=== PATIENT | male | born 1950 | race Caucasian/White ===

== ENCOUNTER 2018-06-13 09:21 | Inpatient (IN) ==
[2018-06-15 07:55] VITALS: BP 134/70
== END 2018-06-15 09:15 | disposition home or self-care (01) | DRG 864 ==
LOC: N.2W 10:03 → N.TELES 15:16
PROVIDERS: ADMIT Family Medicine; ATTEND Family Medicine

== ENCOUNTER 2022-06-26 05:28 | Inpatient (IN) ==
[2022-06-26 05:55] LABS: Basophils # 0.1 10*3/uL (0.0-0.2); Basophils % 0.6 % (0.0-0.8); Eosinophils # 0.3 10*3/uL (0.0-0.87); Eosinophils % 2.6 % (0.00-10.9); Hematocrit 31.8 VOL% (42.0-52.0); Hemoglobin 10.6 GM/DL (14.0-18.0); Immature Granulocytes % 0.8 %; Immature Granulocytes Absolute 0.09 #; Lymphocytes # 1.9 10*3/uL (1.4-4.0); Lymphocytes % 18.1 % (21.2-54.2); Mean Corpuscular HGB Conc 33.3 GM/DL (32-36); Mean Corpuscular Volume 85.7 FL (87-102); Monocytes # 1.1 10*3/uL (0.11-0.8); Monocytes % 10.1 % (1.7-12.7); Neutrophils % 67.8 % (38.7-73.9); Platelet Count 404 T/CUMM (130-400); Red Blood Count 3.71 MC/CUMM (3.8-5.5); Red Cell Distribution Width 13.7 % (9.3-17.3); White Blood Count 10.7 T/CUMM (4-12)
[2022-06-26 06:12] LABS: INR 1.3; PT Patient Result 14.2 SECS (10.1-12.1)
[2022-06-26] MEDS ORDERED: SODIUM CHLORIDE 0.9% 2,000 ML IV STA (06:12)
[2022-06-26 06:15] LABS: Mucus,Urine Occasional /LPF (Occasional); RBC,Urine 1 /HPF (0-4)
[2022-06-26] MEDS ORDERED: cefTRIAXone 1,000 MG in SODIUM CHLORIDE 0.9% 100 ML IV STA (06:15)
[2022-06-26 06:18] LABS: Bilirubin,Urine Negative (Negative); Blood, Urine Negative (Negative); Glucose,Urine (UA) Negative (Negative); Ketones,Urine 40 mg/dL (Negative); Nitrite,Urine Negative (Negative); Protein,Urine Negative (Negative); Urine Appearance Clear (Clear); Urine Color Yellow (Yellow); Urine Specific Gravity 1.025 (1.001-1.035); Urine Urobilinogen 0.2 eU/dL (<2.0); Urine pH 5.5 (4.5-8.0)
[2022-06-26 06:22] LABS: Albumin 2.4 G/DL (3.4-5.0); Bilirubin,Total 0.6 MG/DL (0.20-1.00); Calcium 9.5 MG/DL (8.5-10.1); Osmolality,Calculated 265.2 MOS/KG (273-304); Potassium 2.8 MMOL/L (3.5-5.1); Total Protein 6.1 G/DL (6.4-8.2)
[2022-06-26] MEDS ORDERED: SODIUM CHLORIDE 0.9% 1,000 ML IV STA (07:46)
[2022-06-26] MEDS ORDERED: VANCOMYCIN INJ 1,250 MG in SODIUM CHLORIDE 0.9% 250 ML IV STA (07:53)
[2022-06-26] MEDS ORDERED: HYDROmorphone 1 MG/1 ML SYRINGE IV STA (08:00)
[2022-06-26] MEDS ORDERED: ONDANSETRON 4 MG/2 ML VIAL IV STA (08:00)
[2022-06-26] MEDS ORDERED: KETOROLAC 30 MG/1 ML VIAL IV STA (08:00)
[2022-06-26] MEDS ORDERED: GLUCAGON 1 MG VIAL IM PRN ×2 (08:34→16:07)
[2022-06-26] MEDS ORDERED: ONDANSETRON 4 MG/2 ML VIAL IV PRN (08:34)
[2022-06-26] MEDS ORDERED: ACETAMINOPHEN 325 MG TABLET PO PRN (08:34)
[2022-06-26] MEDS ORDERED: HYDROmorphone 1 MG/1 ML SYRINGE IV PRN (08:34)
[2022-06-26] MEDS ORDERED: DEXTROSE 10% 250 ML BAG IV PRN (08:41)
[2022-06-26] MEDS ORDERED: MAGNESIUM SULF RIDER 2 GM/50 ML PREMIX IV PRN (08:51)
[2022-06-26] MEDS ORDERED: MAGNESIUM SULF RIDER 4 GM/100 ML PREMIX IV PRN (08:51)
[2022-06-26] MEDS ORDERED: VANCOMYCIN INJ 1,250 MG in SODIUM CHLORIDE 0.9% 250 ML IV SCH (09:00)
[2022-06-26 09:36] LABS: Cholesterol Crystals None Seen /LPF; Glucose,Synovial Fluid 3 MG/DL
[2022-06-26 09:55] LABS: Lymphocytes,Synovial Fluid 6 %; Neutrophils,Synovial Fluid 92 %
[2022-06-26] MEDS ORDERED: POTASSIUM CHLORIDE RIDER 10 MEQ/100 ML PREMIX IV PRN (10:41)
[2022-06-26] MEDS: ENOXAPARIN 40 MG/0.4 ML SYRINGE SUBCUT SCH (10:56)
[2022-06-26] MEDS: MULTIVITAMIN (CENTRUM) TABLET PO SCH (10:56)
[2022-06-26] MEDS: POTASSIUM CHLORIDE 10 MEQ TABLET PO SCH (10:56)
[2022-06-26] MEDS: DOCUSATE SODIUM 100 MG CAPSULE PO SCH ×2 (10:57→21:32)
[2022-06-26] MEDS: PANTOPRAZOLE 40 MG TABLET PO SCH (10:57)
[2022-06-26] MEDS: LOSARTAN 50 MG TABLET PO SCH (10:57)
[2022-06-26] MEDS: metOLazone 5 MG TABLET PO SCH (10:57)
[2022-06-26] MEDS: CHOLECALCIFEROL 1,000 UNIT TABLET PO SCH (10:57)
[2022-06-26] MEDS: INSULIN LISPRO 100 UNIT/ML SUBCUT SCH ×3 (11:37→21:04)
[2022-06-26] MEDS ORDERED: LACTATED RINGERS 1,000 ML IV SCH (13:00)
[2022-06-26] MEDS ORDERED: PHENYLEPHRINE 1 MG/10 ML SYRINGE IV ONE (13:29)
[2022-06-26] MEDS ORDERED: SUCCINYLCHOLINE 200 MG/10 ML VIAL ONE (13:29)
[2022-06-26] MEDS ORDERED: ONDANSETRON 4 MG/2 ML VIAL ONE (13:29)
[2022-06-26] MEDS ORDERED: SEVOFLURANE 1 UNIT/15 MINUTE INH ONE (13:29)
[2022-06-26] MEDS ORDERED: LIDOCAINE 2% 5 ML VIAL ONE (13:29)
[2022-06-26] MEDS ORDERED: ROCURONIUM 50 MG/5 ML VIAL IV ONE (13:29)
[2022-06-26] MEDS ORDERED: propofoL 200 MG/20 ML VIAL IV ONE (13:29)
[2022-06-26] MEDS ORDERED: fentaNYL 250 MCG/5 ML VIAL ONE (13:30)
[2022-06-26] MEDS ORDERED: PHENYLEPHRINE 10 MG/1 ML VIAL IV ONE (14:14)
[2022-06-26] MEDS ORDERED: DEXTROSE 50% 25 GM/50 ML VIAL IV PRN (16:07)
[2022-06-26] MEDS: POLYETHYLENE GLYCOL POWDER 17 GM PACK PO SCH (16:14)
[2022-06-26] MEDS: FLUCONAZOLE INJ 200 MG/100 ML PREMIX IV SCH (16:14)
[2022-06-26] MEDS: ROSUVASTATIN 10 MG TABLET PO SCH (20:59)
[2022-06-27] MEDS: SODIUM CHLORIDE 0.45% 1,000 ML IV SCH ×3 (01:17→20:56)
[2022-06-27] MEDS: VANCOMYCIN INJ 1,250 MG in SODIUM CHLORIDE 0.9% 250 ML IV SCH ×2 (02:37→21:04)
[2022-06-27 06:11] LABS: Basophils % 0.3 % (0.0-0.8); Eosinophils # 0.3 10*3/uL (0.0-0.87); Eosinophils % 3.6 % (0.00-10.9); Hematocrit 26.7 VOL% (42.0-52.0); Immature Granulocytes % 0.4 %; Immature Granulocytes Absolute 0.04 #; Lymphocytes # 1.3 10*3/uL (1.4-4.0); Lymphocytes % 14.4 % (21.2-54.2); Mean Corpuscular HGB Conc 32.6 GM/DL (32-36); Mean Corpuscular Volume 86.7 FL (87-102); Mean Platelet Volume 9.4 FL (9.6-12.0); Monocytes # 1.1 10*3/uL (0.11-0.8); Monocytes % 12.6 % (1.7-12.7); Neutrophils % 68.7 % (38.7-73.9); Platelet Count 291 T/CUMM (130-400); Red Blood Count 3.08 MC/CUMM (3.8-5.5); Red Cell Distribution Width 14.1 % (9.3-17.3); White Blood Count 8.9 T/CUMM (4-12)
[2022-06-27 06:20] LABS: Hemoglobin 8.7 GM/DL (14.0-18.0)
[2022-06-27 07:10] LABS: Eosinophils 3 % (0-10); Lymphocytes 19 % (20-55); Platelet Estimate Normal; Total Cells Counted 100
[2022-06-27] MEDS: INSULIN LISPRO 100 UNIT/ML SUBCUT SCH ×4 (08:39→21:04)
[2022-06-27] MEDS: POTASSIUM CHLORIDE 10 MEQ TABLET PO SCH (08:47)
[2022-06-27] MEDS: CHOLECALCIFEROL 1,000 UNIT TABLET PO SCH (08:47)
[2022-06-27] MEDS: cefTRIAXone 1,000 MG in SODIUM CHLORIDE 0.9% 100 ML IV SCH (08:47)
[2022-06-27] MEDS: DOCUSATE SODIUM 100 MG CAPSULE PO SCH ×2 (08:47→21:04)
[2022-06-27] MEDS: metOLazone 5 MG TABLET PO SCH (08:48)
[2022-06-27] MEDS: LOSARTAN 50 MG TABLET PO SCH (08:48)
[2022-06-27] MEDS: PANTOPRAZOLE 40 MG TABLET PO SCH (08:48)
[2022-06-27] MEDS: MULTIVITAMIN (CENTRUM) TABLET PO SCH (08:48)
[2022-06-27] MEDS: POLYETHYLENE GLYCOL POWDER 17 GM PACK PO SCH (09:14)
[2022-06-27] MEDS: ENOXAPARIN 40 MG/0.4 ML SYRINGE SUBCUT SCH (09:14)
[2022-06-27] MEDS: FLUCONAZOLE INJ 200 MG/100 ML PREMIX IV SCH (11:46)
[2022-06-27] MEDS: ROSUVASTATIN 10 MG TABLET PO SCH (21:04)
[2022-06-28 06:21] LABS: Basophils % 0.4 % (0.0-0.8); Eosinophils # 0.4 10*3/uL (0.0-0.87); Hematocrit 26.9 VOL% (42.0-52.0); Hemoglobin 8.9 GM/DL (14.0-18.0); Immature Granulocytes % 0.9 %; Immature Granulocytes Absolute 0.07 #; Lymphocytes % 13.1 % (21.2-54.2); Mean Corpuscular HGB Conc 33.1 GM/DL (32-36); Mean Corpuscular Volume 86.8 FL (87-102); Mean Platelet Volume 9.5 FL (9.6-12.0); Monocytes # 0.8 10*3/uL (0.11-0.8); Monocytes % 10.5 % (1.7-12.7); Neutrophils % 70.1 % (38.7-73.9); Platelet Count 280 T/CUMM (130-400); Red Cell Distribution Width 13.9 % (9.3-17.3); White Blood Count 7.7 T/CUMM (4-12)
[2022-06-28 06:39] LABS: Calcium 8.4 MG/DL (8.5-10.1); Potassium 3.3 MMOL/L (3.5-5.1)
[2022-06-28] MEDS: SODIUM CHLORIDE 0.45% 1,000 ML IV SCH ×4 (07:24→18:39)
[2022-06-28] MEDS: INSULIN LISPRO 100 UNIT/ML SUBCUT SCH ×4 (08:23→23:18)
[2022-06-28] MEDS: MULTIVITAMIN (CENTRUM) TABLET PO SCH (09:35)
[2022-06-28] MEDS: LOSARTAN 50 MG TABLET PO SCH (09:36)
[2022-06-28] MEDS: CHOLECALCIFEROL 1,000 UNIT TABLET PO SCH (09:36)
[2022-06-28] MEDS: DOCUSATE SODIUM 100 MG CAPSULE PO SCH ×2 (09:36→23:24)
[2022-06-28] MEDS: POTASSIUM CHLORIDE 10 MEQ TABLET PO SCH (09:36)
[2022-06-28] MEDS: POLYETHYLENE GLYCOL POWDER 17 GM PACK PO SCH (09:36)
[2022-06-28] MEDS: metOLazone 5 MG TABLET PO SCH (09:37)
[2022-06-28] MEDS: PANTOPRAZOLE 40 MG TABLET PO SCH (09:40)
[2022-06-28] MEDS: cefTRIAXone 1,000 MG in SODIUM CHLORIDE 0.9% 100 ML IV SCH (09:40)
[2022-06-28] MEDS: ENOXAPARIN 40 MG/0.4 ML SYRINGE SUBCUT SCH (09:46)
[2022-06-28] MEDS: FLUCONAZOLE INJ 200 MG/100 ML PREMIX IV SCH (12:00)
[2022-06-28] MEDS: VANCOMYCIN INJ 1,250 MG in SODIUM CHLORIDE 0.9% 250 ML IV SCH (16:54)
[2022-06-28] MEDS: DESITIN 4OZ/NYSTATIN 15 GRAM MIXTURE PASTE TOP SCH (23:24)
[2022-06-28] MEDS: ROSUVASTATIN 10 MG TABLET PO SCH (23:24)
[2022-06-29] MEDS: SODIUM CHLORIDE 0.45% 1,000 ML IV SCH ×4 (02:48→23:52)
[2022-06-29 06:21] LABS: Basophils % 0.6 % (0.0-0.8); Eosinophils # 0.3 10*3/uL (0.0-0.87); Eosinophils % 5.2 % (0.00-10.9); Hematocrit 27.6 VOL% (42.0-52.0); Hemoglobin 9.1 GM/DL (14.0-18.0); Immature Granulocytes % 1.4 %; Immature Granulocytes Absolute 0.09 #; Lymphocytes # 1.2 10*3/uL (1.4-4.0); Lymphocytes % 18.8 % (21.2-54.2); Mean Corpuscular Volume 86.3 FL (87-102); Mean Platelet Volume 9.1 FL (9.6-12.0); Monocytes # 0.8 10*3/uL (0.11-0.8); Monocytes % 12.7 % (1.7-12.7); Neutrophils % 61.3 % (38.7-73.9); Platelet Count 309 T/CUMM (130-400); White Blood Count 6.4 T/CUMM (4-12)
[2022-06-29 06:38] LABS: Calcium 8.6 MG/DL (8.5-10.1); Potassium 2.9 MMOL/L (3.5-5.1)
[2022-06-29] MEDS ORDERED: POTASSIUM CHLORIDE 20 MEQ TABLET PO ONE (08:27)
[2022-06-29] MEDS: cefTRIAXone 1,000 MG in SODIUM CHLORIDE 0.9% 100 ML IV SCH (08:42)
[2022-06-29] MEDS: LOSARTAN 50 MG TABLET PO SCH (09:38)
[2022-06-29] MEDS: MULTIVITAMIN (CENTRUM) TABLET PO SCH (09:38)
[2022-06-29] MEDS: DOCUSATE SODIUM 100 MG CAPSULE PO SCH ×2 (09:38→23:22)
[2022-06-29] MEDS: PANTOPRAZOLE 40 MG TABLET PO SCH (09:38)
[2022-06-29] MEDS: CHOLECALCIFEROL 1,000 UNIT TABLET PO SCH (09:38)
[2022-06-29] MEDS: metOLazone 5 MG TABLET PO SCH (09:39)
[2022-06-29] MEDS: POTASSIUM CHLORIDE 10 MEQ TABLET PO SCH (09:39)
[2022-06-29] MEDS: ENOXAPARIN 40 MG/0.4 ML SYRINGE SUBCUT SCH (09:45)
[2022-06-29] MEDS: POLYETHYLENE GLYCOL POWDER 17 GM PACK PO SCH (09:47)
[2022-06-29] MEDS: VANCOMYCIN INJ 1,250 MG in SODIUM CHLORIDE 0.9% 250 ML IV SCH (09:48)
[2022-06-29] MEDS: INSULIN LISPRO 100 UNIT/ML SUBCUT SCH ×4 (10:29→21:23)
[2022-06-29] MEDS: DESITIN 4OZ/NYSTATIN 15 GRAM MIXTURE PASTE TOP SCH ×2 (10:30→23:22)
[2022-06-29] MEDS: ROSUVASTATIN 10 MG TABLET PO SCH (23:22)
[2022-06-30] MEDS: VANCOMYCIN INJ 1,250 MG in SODIUM CHLORIDE 0.9% 250 ML IV SCH (03:45)
[2022-06-30 06:08] LABS: Basophils % 0.5 % (0.0-0.8); Eosinophils # 0.4 10*3/uL (0.0-0.87); Eosinophils % 7.1 % (0.00-10.9); Hematocrit 28.9 VOL% (42.0-52.0); Hemoglobin 9.6 GM/DL (14.0-18.0); Immature Granulocytes % 2.5 %; Immature Granulocytes Absolute 0.15 #; Lymphocytes # 1.2 10*3/uL (1.4-4.0); Lymphocytes % 20.2 % (21.2-54.2); Mean Corpuscular HGB Conc 33.2 GM/DL (32-36); Mean Corpuscular Volume 85.5 FL (87-102); Mean Platelet Volume 8.8 FL (9.6-12.0); Monocytes # 0.9 10*3/uL (0.11-0.8); Monocytes % 14.9 % (1.7-12.7); Neutrophils % 54.8 % (38.7-73.9); Platelet Count 300 T/CUMM (130-400); Red Blood Count 3.38 MC/CUMM (3.8-5.5); Red Cell Distribution Width 13.9 % (9.3-17.3); White Blood Count 6.1 T/CUMM (4-12)
[2022-06-30 06:25] LABS: Calcium 9.1 MG/DL (8.5-10.1); Osmolality,Calculated 269.8 MOS/KG (273-304); Potassium 3.1 MMOL/L (3.5-5.1)
[2022-06-30] MEDS: INSULIN LISPRO 100 UNIT/ML SUBCUT SCH ×3 (07:34→16:22)
[2022-06-30] MEDS ORDERED: POTASSIUM CHLORIDE 20 MEQ TABLET PO ONE (08:31)
[2022-06-30] MEDS: cefTRIAXone 1,000 MG in SODIUM CHLORIDE 0.9% 100 ML IV SCH (10:08)
[2022-06-30] MEDS: CHOLECALCIFEROL 1,000 UNIT TABLET PO SCH (10:10)
[2022-06-30] MEDS: POTASSIUM CHLORIDE 10 MEQ TABLET PO SCH (10:10)
[2022-06-30] MEDS: MULTIVITAMIN (CENTRUM) TABLET PO SCH ×2 (10:10→10:28)
[2022-06-30] MEDS: ENOXAPARIN 40 MG/0.4 ML SYRINGE SUBCUT SCH (10:11)
[2022-06-30] MEDS: DOCUSATE SODIUM 100 MG CAPSULE PO SCH (10:11)
[2022-06-30] MEDS: PANTOPRAZOLE 40 MG TABLET PO SCH (10:11)
[2022-06-30] MEDS: POLYETHYLENE GLYCOL POWDER 17 GM PACK PO SCH (10:18)
[2022-06-30] MEDS: LOSARTAN 50 MG TABLET PO SCH (10:19)
[2022-06-30] MEDS: DESITIN 4OZ/NYSTATIN 15 GRAM MIXTURE PASTE TOP SCH (10:22)
[2022-06-30] MEDS: SODIUM CHLORIDE 0.45% 1,000 ML IV SCH ×3 (10:23→18:35)
[2022-06-30] MEDS ORDERED: MAGNESIUM SULF RIDER 4 GM/100 ML PREMIX IV ONE (15:00)
[2022-06-30 16:23] VITALS: BP 114/74
== END 2022-06-30 18:35 | DRG 549 ==
LOC: EDBD → EDUNIT# → N.ED 05:28 → N.5E 08:34
PROVIDERS: ADMIT Family Medicine; ATTEND Family Medicine